=== PATIENT | female | born 2005 | race African-American/Black ===

== ENCOUNTER 2025-01-17 09:40 | Outpatient (CLI) | payer MEDICAID, SELFPAY | END 2025-01-17 09:41 | disposition home or self-care (01) | LOC: NFLDREF 01-18 16:21 | PROVIDERS: PCP Physician Assistant Medical; Referring Provider Physician Assistant Medical; Visit Provider Physician Assistant Medical | DX: Z11.3 Encounter for screening for infections with a predominantly sexual mode of transmission (principal) | CPT/HCPCS: 87491; 87591 ==